=== PATIENT | male | born 1975 | race Two or more races ===

== ENCOUNTER 2019-07-08 08:08 | Outpatient (CLI) | payer OTHER | END 2019-07-08 08:37 | disposition home or self-care (01) | LOC: LAB 08:08 | DX: R42 Dizziness and giddiness (principal); Z11.3 Encounter for screening for infections with a predominantly sexual mode of transmission; Z00.00 Encounter for general adult medical examination without abnormal findings; E78.49 Other hyperlipidemia; E55.9 Vitamin D deficiency, unspecified; N39.0 Urinary tract infection, site not specified; R10.84 Generalized abdominal pain ==

== ENCOUNTER 2019-12-23 08:25 | Outpatient (CLI) | payer OTHER | END 2019-12-23 08:33 | disposition home or self-care (01) | LOC: RAD 08:25 | PROVIDERS: ATTEND Physical Medicine & Rehabilitation Sports Medicine | DX: M25.561 Pain in right knee (principal); M25.562 Pain in left knee ==